=== PATIENT | female | born 1995 | race Caucasian/White ===

== ENCOUNTER 2021-04-08 13:04 | Emergency (ER) | payer SELFPAY ==
[2021-04-08] MEDS ORDERED: HYDROcodone/Acetaminophen 10/325 mg Tablet ONE (13:41)
[2021-04-08] MEDS ORDERED: Gabapentin 100 MG CAP ONE (13:42)
[2021-04-08] MEDS ORDERED: Cyclobenzaprine 10 MG TAB ONE (13:42)
[2021-04-08] MEDS ORDERED: Ondansetron ODT 4 MG TAB ONE (13:48)
== END 2021-04-08 14:00 | disposition home or self-care (01) ==
LOC: MADERS 13:04
DX: G62.9 Polyneuropathy, unspecified (principal); G89.29 Other chronic pain; M79.604 Pain in right leg; M79.605 Pain in left leg; F11.23 Opioid dependence with withdrawal; R26.9 Unspecified abnormalities of gait and mobility; Z89.611 Acquired absence of right leg above knee
CPT/HCPCS: 99283; Q0162